=== PATIENT | female | born 1945 | race Caucasian/White ===

== ENCOUNTER 2021-03-27 15:09 | Inpatient (IN) | payer OTHER, SELFPAY ==
[~2021-03-27] VITALS: Ht 157.5 cm; Wt 96.6 kg
[2021-03-27 15:15] VITALS: BP_SYST 144
[2021-03-27] MEDS ORDERED: HYDROcodone/ACETAMIN 10-325 MG TAB PO ONE (16:00)
--- NOTE | 2021-03-27 18:00 | NUR ---
assess pt stated she fell on her left knee no wound noted [facility] pulses present pt is obese and has had chantel knee surgery teaching given
[2021-03-27] MEDS: MORPHINE 4 MG INJ. 4 MG/ML VIAL IVP PRN ×2 (18:39→22:09)
--- NOTE | 2021-03-27 18:42 | NUR ---
was given morphine for pain denied allergy med teaching given
[2021-03-27 18:53] LABS: BASOPHILS % (AUTO) 0.1 % (0.0-2.0); EOSINOPHILS % (AUTO) 0.4 % (0.0-4.0); HEMATOCRIT 34.9 % (36-48); HEMOGLOBIN 11.3 g/dL (12.0-16.0); LYMPHOCYTES # (AUTO) 1.5 K/uL (1.0-5.5); MEAN CORPUSCULAR HEMOGLOBIN 28 pg (27-31); MEAN CORPUSCULAR HGB CONC 32 % (32-36); MEAN CORPUSCULAR VOLUME 88 fL (79.0-98.0); MONOCYTES # (AUTO) 0.5 K/uL (0.0-1.0); MONOCYTES % (AUTO) 4.7 % (1.7-9.3); NEUTROPHILS # (AUTO) 9.3 K/uL (1.8-7.7); NEUTROPHILS % (AUTO) 81.8 % (40.0-70.0); PLATELET COUNT (AUTO) 229 K/uL (130-430); RED BLOOD CELL COUNT(AUTO) 3.97 MIL/uL (4.2-6.2); RED CELL DISTRIBUTION WIDTH 14.2 % (9.0-15.0); WHITE BLOOD COUNT (AUTO) 11.4 K/uL (4.8-10.8)
[2021-03-27 18:58] LABS: ANION GAP 8 (5-15); CALCIUM 7.8 mg/dL (8.4-11.0); CHLORIDE 102 mmol/L (98-107); CREATININE 0.86 mg/dL (0.55-1.30); GLUCOSE 139 mg/dL (70-99); POTASSIUM 3.8 mmol/L (3.5-5.1); SODIUM SERUM 138 mmol/L (136-145); UREA NITROGEN, BLOOD 12 mg/dL (8-21)
[2021-03-27 19:00] LABS: INR 2.3 (0.8-1.2); PROTHROMBIN TIME 23.1 SECS (9.5-12.5)
[2021-03-27 19:03] LABS: ALANINE AMINOTRANSFERASE 14 U/L (12-78); ALBUMIN 3.1 g/dL (3.4-4.8); ASPARTATE AMINOTRANSFERASE 17 U/L (10-37); TOTAL BILIRUBIN 0.4 mg/dL (0.0-1.0)
--- NOTE | 2021-03-27 19:10 | NUR ---
Patient to ER bed 5 to gown for evaluation. Side rails up. Report given to GISELLA HERNÁNDEZ.
--- NOTE | 2021-03-27 20:14 | NUR ---
Patient will be admitted to care of DR. Triston SALVADOR . Admitted to unit. Will go to room . Belongings list completed. Complete and up to date summary report printed. SBAR report to be given at bedside with opportunity for questions.
--- NOTE | 2021-03-27 20:30 | NUR ---
ADMISSION NOTE Received patient from ER via [place], received report from ER/ RN. Patient admitted with diagnosis of LEFT FEMUR FRACTURE. Patient oriented to hospital routine, call light, toileting and safety-patient verbalized understanding.
[2021-03-27 20:50] VITALS: BP_SYST 149
[2021-03-27] MEDS ORDERED: COR6.25 PO (21:21)
[2021-03-27] MEDS ORDERED: VENLAFAXINE PO (21:21)
[2021-03-27] MEDS ORDERED: TRAM50TA2 PO (21:21)
[2021-03-27] MEDS ORDERED: LIP20 PO (21:21)
[2021-03-27] MEDS ORDERED: LEVA1.2527 NEB (21:21)
[2021-03-27] MEDS ORDERED: LOSA100T3 PO (21:21)
[2021-03-27] MEDS ORDERED: BACL20TA PO (21:21)
[2021-03-27] MEDS ORDERED: [UNRECOGNIZED DRUG - OTHER] IH (21:21)
[2021-03-27] MEDS ORDERED: AMLO2.5T2 PO (21:21)
[2021-03-27] MEDS ORDERED: ALEN10TA25 PO (21:21)
[2021-03-27] MEDS ORDERED: LEVO25TA7 PO (21:21)
[2021-03-27] MEDS ORDERED: WARF4TAB72 PO (21:21)
[2021-03-27] MEDS ORDERED: FLEC50TA2 PO (21:21)
[2021-03-27] MEDS ORDERED: FAMO40TA7 PO (21:21)
[2021-03-27] MEDS ORDERED: HYDR-3917 PO (21:21)
[2021-03-27] MEDS ORDERED: ALBU8.5H8 INH (21:21)
[2021-03-27] MEDS ORDERED: GABA800T PO ×2 (21:21)
[2021-03-27] MEDS ORDERED: HYDROcodone/ACETAMIN 5-325 MG TAB (NORCO/ VICODIN) PO PRN (22:45)
[2021-03-27] MEDS ORDERED: ACETAMINOPHEN 325 MG TABLET PO PRN (22:45)
[2021-03-27] MEDS ORDERED: ALBUTEROL MDI INHALATION 8 GM INH INH PRN (22:45)
[2021-03-27] MEDS ORDERED: traMADol HCL HCL 50 MG TABLET (ULTRAM) PO PRN (22:45)
[2021-03-27] MEDS ORDERED: LORazepam 2 MG/ML VIAL IVP PRN (22:45)
[2021-03-27] MEDS ORDERED: ONDANSETRON HCL 4 MG/2 ML VIAL IVP PRN (22:45)
[2021-03-27] MEDS ORDERED: BACLOFEN 10 MG TABLET PO PRN (22:45)
[2021-03-27] MEDS ORDERED: NALOXONE HCL 0.4 MG/ML AMP (NARCAN) IVP PRN (22:45)
[2021-03-27] MEDS ORDERED: INSULIN REGULAR, HUMAN 100 UNITS/ML, 10 ML VIAL (humuLIN R) SUBCUT PRN (23:00)
[2021-03-28] VITALS (8 sets, daily range): BP systolic 110–147
[2021-03-28] MEDS: MORPHINE 2 MG/ML INJ. SYRINGE IVP PRN ×5 (02:18→18:55)
[2021-03-28] MEDS: NORMAL SALINE 5 ML DISP.SYRIN IVF SCH ×3 (05:02→23:26)
--- NOTE | 2021-03-28 05:44 | NUR ---
CALLED CONSULT [facility] IS CLOSED CALL DURING BUSINESS DAY NO OPTION TO LEAVE A MESSAGE I WILL PASSED IT TO THE DAY [employer]W MEMBER
[2021-03-28] MEDS ORDERED: NORMAL SALINE 5 ML DISP.SYRIN IVF SCH (06:00)
[2021-03-28 06:37] LABS: BASOPHILS % (AUTO) 0.4 % (0.0-2.0); EOSINOPHILS % (AUTO) 0.6 % (0.0-4.0); HEMATOCRIT 31.8 % (36-48); HEMOGLOBIN 10.3 g/dL (12.0-16.0); LYMPHOCYTES # (AUTO) 2.4 K/uL (1.0-5.5); LYMPHOCYTES % (AUTO) 31.3 % (20.5-51.5); MEAN CORPUSCULAR HEMOGLOBIN 29 pg (27-31); MEAN CORPUSCULAR HGB CONC 33 % (32-36); MEAN CORPUSCULAR VOLUME 88 fL (79.0-98.0); MONOCYTES # (AUTO) 0.7 K/uL (0.0-1.0); MONOCYTES % (AUTO) 9.2 % (1.7-9.3); NEUTROPHILS # (AUTO) 4.5 K/uL (1.8-7.7); NEUTROPHILS % (AUTO) 58.5 % (40.0-70.0); PLATELET COUNT (AUTO) 211 K/uL (130-430); RED BLOOD CELL COUNT(AUTO) 3.62 MIL/uL (4.2-6.2); RED CELL DISTRIBUTION WIDTH 14.2 % (9.0-15.0); WHITE BLOOD COUNT (AUTO) 7.7 K/uL (4.8-10.8)
--- NOTE | 2021-03-28 06:51 | NUR ---
CONSULTATION PAGED/CALLED Reason for Consultation: [] FEMUR FRACTURE Person Who was Notified: [] CALLED DR DAVENPORT ON HIS CELL Consulting Physician: [] DR Abdifatah DAVENPORT Active [employer] Systems Administrator Specialty: [] ORTHO Ordering Physician: [] DR SALVADOR
[2021-03-28] MEDS ORDERED: LEVOTHYROXINE SODIUM 0.025 MG TABLET PO SCH (07:00)
[2021-03-28] MEDS ORDERED: GLUCOSE (DEXTROSE) ORAL GEL -Adults PO PRN (07:15)
[2021-03-28] MEDS ORDERED: D5W 1,000 ML IV PRN (07:15)
[2021-03-28] MEDS ORDERED: ALBUTEROL SULFATE 0.083% 2.5 MG/3 ML VIAL.NEB INH PRN (07:15)
[2021-03-28] MEDS ORDERED: DEXTROSE 50%-WATER 50 ML DISP.SYRIN IVP PRN (07:15)
[2021-03-28] MEDS: BUDESONIDE 0.5 MG/2 ML AMPUL.NEB IH SCH ×2 (07:48→19:00)
[2021-03-28] MEDS: LevALBUTEROL HCL 1.25 MG/0.5 ML *CONC.* VIAL.NEB (XOPENEX CONC.) INH SCH ×4 (07:48→19:00)
[2021-03-28 07:51] LABS: ALANINE AMINOTRANSFERASE 16 U/L (12-78); ALBUMIN 2.8 g/dL (3.4-4.8); ANION GAP 7 (5-15); ASPARTATE AMINOTRANSFERASE 22 U/L (10-37); CALCIUM 7.8 mg/dL (8.4-11.0); CHLORIDE 103 mmol/L (98-107); CREATININE 0.69 mg/dL (0.55-1.30); GLUCOSE 115 mg/dL (70-99); POTASSIUM 4.6 mmol/L (3.5-5.1); SODIUM SERUM 139 mmol/L (136-145); TOTAL BILIRUBIN 0.4 mg/dL (0.0-1.0); UREA NITROGEN, BLOOD 11 mg/dL (8-21)
[2021-03-28 08:55] LABS: INR 2.7 (0.8-1.2); PROTHROMBIN TIME 26.3 SECS (9.5-12.5)
[2021-03-28] MEDS: CARVEDILOL 6.25 MG TABLET (COREG) PO SCH ×2 (08:59→20:39)
[2021-03-28] MEDS: FLECAINIDE ACETATE 50 MG TABLET (TAMBOCOR) PO SCH ×2 (08:59→20:31)
[2021-03-28] MEDS ORDERED: LOSARTAN POTASSIUM 50 MG TABLET (COZAAR) PO SCH (09:00)
[2021-03-28] MEDS: FAMOTIDINE 20 MG TABLET PO SCH ×2 (09:00→20:35)
[2021-03-28] MEDS ORDERED: amLODIPine BESYLATE 5 MG TABLET PO SCH (09:00)
[2021-03-28] MEDS ORDERED: ALENDRONATE SODIUM 10 MG TABLET (FOSAMAX) PO SCH (09:00)
[2021-03-28] MEDS ORDERED: GABAPENTIN 400 MG CAPSULE PO SCH ×2 (09:00→21:00)
[2021-03-28] MEDS ORDERED: ATORVASTATIN 20 MG TABLET PO SCH (09:00)
[2021-03-28] MEDS ORDERED: Effexor XR 37.5 MG PO SCH (09:00)
--- NOTE | 2021-03-28 09:06 | NUR ---
CONSULTATION PAGED REASON FOR CONSULTATION:FEMUR FRACTURE WAS CONSULT CALED?Y PERSON WHO WAS NOTIFIED:JEN CONSULTING PHYSICIAN:ISA GRACIA SEMICONDUCTOR BONDER SPECIALTY:ORTHO SEMICONDUCTOR BONDER PHONE NUMBER:[phone] REQUESTING PHYSICIAN:RAMONA OSMAN
--- NOTE | 2021-03-28 10:02 | NUR ---
Nutrition Update Isma Scale 16 noted. Pt admitted for femoral fracture. Diet: [facility] BMI: 39 kg/m2 RD to follow per nutrition care standards.
[2021-03-28] MEDS ORDERED: WARFARIN SODIUM 4 MG TABLET PO SCH (18:00)
--- NOTE | 2021-03-28 18:10 | NUR ---
Note Pt resting in bed with dinner tray in front of her. Pt was checked on q1' and PRN all shift for needs and care. Pt's bed in low position and bed alarm on all shift. Pt next to nurses' station for close observation. Left leg pain tolerable at this time. No needs noted at this time. Call light within reach. Informed at this time that pt will be transferred to [facility] once ambulance is set up. Pt to be notified at this time. Call light within reach all shift.
--- NOTE | 2021-03-28 19:03 | NUR ---
SPOKE WITH PT REGARDING SCHEDULED MEDICATION ADMINISTRATION, PT STATED SHE DIDNT NEED THE SCHEDULED MEDICATIONS, AND USED HER NEBULIZER NEEDED AT HOME. PT BREATH SOUNDS ARE CLEAR. WILL CONTINUE TO MONITOR
--- NOTE | 2021-03-28 23:40 | NUR ---
Report given to Lisa at [facility]. Pt complained of pain 6/10 at left hip, given with PRN [place]. Pt picked up by 2 transporters. V/S checked. Belongings secured with discharge.
== END 2021-03-28 23:40 | disposition short-term general hospital (02) | DRG 534 ==
LOC: SED 15:09 → SMU 19:41
PROVIDERS: ADMIT Preventive Medicine Preventive Medicine/Occupational Environmental Medicine; ATTEND Internal Medicine Hospice and Palliative Medicine
DX: S72.422A Displaced fracture of lateral condyle of left femur, initial encounter for closed fracture (principal); M97.12XA Periprosthetic fracture around internal prosthetic left knee joint, initial encounter; E44.0 Moderate protein-calorie malnutrition; Z79.01 Long term (current) use of anticoagulants; E11.9 Type 2 diabetes mellitus without complications; I10 Essential (primary) hypertension; I48.91 Unspecified atrial fibrillation; Z96.653 Presence of artificial knee joint, bilateral; Z20.822 Contact with and (suspected) exposure to COVID-19; W01.0XXA Fall on same level from slipping, tripping and stumbling without subsequent striking against object, initial encounter; Y93.89 Activity, other specified; Y92.89 Other specified places as the place of occurrence of the external cause; Y99.8 Other external cause status; Z88.8 Allergy status to other drugs, medicaments and biological substances; Z88.1 Allergy status to other antibiotic agents; Z91.041 Radiographic dye allergy status; Z68.39 Body mass index [BMI] 39.0-39.9, adult
CPT/HCPCS: 36415; 73564; 80053; 82962; 85025; 85610-TC; 85730-TC; 86886; 86900; 86901; 87081; 94640; 96374; 99285; J1815; J2270; J7612; J7626